=== PATIENT | female | born 1935 | race Caucasian/White ===

== ENCOUNTER 2016-12-30 11:13 | Observation (INO) | payer MEDICARE, BC ==
--- NOTE | ~2016-12-30 | HP ---
History And Physical [place] [address] [facility] [place]. [address] NAME: SHAYNE HIGGINS : 35 STATUS : ADM Francesca PAT#: [id number] AGE: 81 ADM/REG DATE : 12/30/16 MR#: [id number] REPORT SERV DATE: 12/30/16 DICTATED BY: KAUSHIK DE LA ROSA DATE: 12/30/16 REPORT STATUS : Draft TRANSCRIBED BY: BARBIE DATE: 12/30/16 DATE OF ADMISSION: 12/30/2016 CHIEF COMPLAINT: Nausea, vomiting, and chronic diarrhea. HISTORY OF PRESENT ILLNESS: The patient is an 81-year-old female with past medical history of hypothyroidism and hypertension who presents after having sudden onset of nausea, vomiting at approximately 9 to 10 this morning after taking her Synthroid medication. Symptoms were noted as the patient feeling as if she was spinning and the room was spinning, causing shakiness and dizziness. The symptoms have been intermittent, moderate severity, but are pronounced measured, very dizzy when she changes position, and almost falling episodes. She does not report any other neurologic deficits including diplopia or visual changes or loss of vision or change in speech, tip; any numbness, tingling, or motor deficits and these are also not reported by family. Symptoms are strictly occasional nystagmus, beating nystagmus with positional changes. There are no pain radiating symptoms. Does have nausea and vomiting. Has chronic diarrhea that which she follows with Dr. Rees and is on medications for. These symptoms are worsened with positional changes or lately by resting in one single position. Symptoms are still currently present and reproducible. Of note, the patient had similar episode approximately a year ago when she was placed on a different type of ARB. We had changed to Benicar which the patient tolerated well. However, due to insurance reasons, she was changed to irbesartan approximately a month ago and appears to have difficulties tolerating irbesartan again with review of literature approximately 10% cause of dizziness. REVIEW OF SYSTEMS: For additional review of systems, GENERAL: No fever or chills. Positive dizziness. EYES: No eye pain or diplopia. ENT: No ear pain or sore throat. NEURO: No headache, but does have dizziness. SKIN: No rashes but easy bruising. RESPIRATORY: Occasional shortness of breath and dyspnea on exertion over the last few years. No acute changes. CV: No chest pain or palpitations. GI: Nausea, vomiting, and diarrhea. : No dysuria or hematuria. MUSCULOSKELETAL: No myalgias or arthralgias. ENDO: No fatigue or polyuria. HEME: No bleeding. Does have chronic bruising history. IMMUNOLOGIC: No rhinorrhea. PSYCH: No anxiety or confusion. PAST MEDICAL HISTORY: Noted for intermittent diarrhea and constipation, followed by Dr. Rees; hypertension, followed by Dr. Day, her PCP, and Dr. Randall; and macular degeneration. History And Physical [address] [address] NAME: SHAYNE HIGGINS : 35 STATUS : ADM Francesca PAT#: [id number] AGE: 81 ADM/REG DATE : 12/30/16 MR#: [id number] REPORT SERV DATE: 12/30/16 DICTATED BY: KAUSHIK DE LA ROSA DATE: 12/30/16 REPORT STATUS : Draft TRANSCRIBED BY: BARBIE DATE: 12/30/16 SURGERIES: She has had thyroid, vocal cord paralysis, gallbladder, appendectomy, hysterectomy, bilateral cataracts. SOCIAL HISTORY: No smoking, alcohol, or illicits. Accompanied by and daughter. in room. Has a large cigar while he is sitting in the room, but not lit. FAMILY HISTORY: Heart disease, diabetes. EKG: Normal sinus rhythm, rate 69, QTc 477. ALLERGIES: NO KNOWN DRUG ALLERGIES. HOME MEDICATIONS: Chlorthalidone, Prozac, irbesartan, Synthroid, Amitiza, Ocuvite, B12, and hormone implants. PHYSICAL EXAMINATION: VITAL SIGNS: The patient's blood pressure 156/64, temperature 98.7, pulse 56, respirations 19, O2 sats of 100%. GENERAL: No acute distress. Calm, pleasant, well developed, well nourished. EYES: No scleral icterus. Does have right-sided beating nystagmus with Annita maneuvers, reproducible. Hearing grossly intact. ENT: Nares patent. Tongue midline. Moist mucous membranes. RESPIRATORY: Clear to auscultation. No wheezes. No gross bruits on carotids. CV: Regular rate. No rubs or gallops. Mildly hypertensive. Trace bilateral pedal edema. GI: Soft, nontender, and nondistended. Bowel sounds positive. : Deferred. MUSCULOSKELETAL: Moves all extremities x4. SKIN: Warm and dry with occasional bruising on shins. LYMPH: No cervical or supraclavicular lymphadenopathy. HEME: Mild bruising sites on the skin. NEURO: Alert and oriented. [id number] intact. Symmetrical speech tip. Motor functions equal in upper and lower extremities. Sensation is still grossly intact. Reproducible right-sided beating nystagmus on head turn and reproducible dizziness. Ears, hearing acuity grossly intact, although the patient reports decreased hearing acuity at higher tongs. PSYCH: Appropriate mood and affect. LABORATORY DATA: CT, no acute intracranial abnormality and mild atrophy. Urinalysis grossly within normal limits. CMP, within normal limits with a mildly elevated glucose at 130. CBC: WBC count 8.1, H and H 11.9 and 34.8, platelets 358. ASSESSMENT AND PLAN: 1. Dizziness, vertigo. 2. Nausea, vomiting, diarrhea. 3. Hypertension. 4. Hyperglycemia. 5. Hypothyroidism. History And Physical [address] [address] NAME: SHAYNE HIGGINS : 35 STATUS : ADM Francesca PAT#: [id number] AGE: 81 ADM/REG DATE : 12/30/16 MR#: [id number] REPORT SERV DATE: 12/30/16 DICTATED BY: KAUSHIK DE LA ROSA DATE: 12/30/16 REPORT STATUS : Draft TRANSCRIBED BY: BARBIE DATE: 12/30/16 6. Chronic diarrhea and constipation. 7. Occasional shortness of breath. PLAN: For dizziness and vertigo, recent change to irbesartan, which has an approximately 1% to 10% cause of dizziness. Additionally, she has reproducible nystagmus with right side beating nystagmus, possible positional vertigo. We will hold ARB at this time, as the patient had similar episodes approximately a year ago. We will likely need Annita maneuvers and neuro consult for repeat episode. CT head negative. Defer further imaging to Neurology if indicated. 1. Nausea, vomiting, diarrhea. Supportive treatment. Treat underlying dizziness. 2. Hypertension. Continue chlorthalidone, the patient low-dose. Sees Dr. Randall and Dr. Day. Start amlodipine and p.r.n.'s. May need to change back to Benicar. 3. Hyperglycemia. Monitor. No history of diabetes. 4. Hypothyroidism, on replacement. Check TSH. 5. Chronic diarrhea and constipation, on Amitiza. Follows with Dr. Rees. 6. Occasional shortness of breath. Has had outpatient workup with Dr. Day. Consider outpatient PFTs. Bronchodilators. No p.r.n., but no acute respiratory decompensation at this time. DDN/MODL Kaushik De La Rosa MD / [id number] CC: Giles Rossi Jr, MD Luis Sims M.D.
--- NOTE | ~2016-12-30 | CN ---
Consultation Report [facility] [address] [place]. [address] NAME: SHAYNE HIGGINS : 35 STATUS : ADM Francesca PAT#: [id number] AGE: 81 ADM/REG DATE : 12/30/16 MR#: [id number] REPORT SERV DATE: 12/31/16 DICTATED BY: GILMA VILLALPANDO DATE: 12/31/16 REPORT STATUS : Draft TRANSCRIBED BY: BARBIE DATE: 12/31/16 NEUROLOGICAL CONSULTATION-EVALUATION DATE OF CONSULTATION: 12/31/2016 HISTORY OF PRESENT ILLNESS: This is an 81-year-old white female with known history of hypertension and hypothyroidism, who was admitted with complaints of recurrent dizziness and presyncope. The patient stated that she while having her breakfast noticed that she was having difficulty focusing her eyes, became nauseated, and felt as if she was going to "pass out." The patient stood up and was unsteady on her feet. She denied losing consciousness. There is no history of seizures or prior history of CVA. The patient describes having similar episodes last year. As per the patient, her antihypertensive medications were changed approximately a week ago. The patient had been on Benicar and was switched to another medication, which name the patient did not recall. Since that time, the patient has had no recurrent spells, however, has been feeling unsteady every time she sits up from the reclining position. The patient denied having tinnitus, denied recent loss of hearing. Denied weakness or numbness involving her face or extremities. The patient stated that she did feel nauseated with episodes described above. PAST MEDICAL HISTORY: Significant for history for hypertension, hypothyroidism, history of macular degeneration. PAST SURGICAL HISTORY: Status post breast implant in 1977. Cataract surgery several years ago. The patient had history of thyroid surgery, cholecystectomy, appendectomy, and hysterectomy. SOCIAL HISTORY: Denies any history of smoking or alcohol use. The patient is and lives with her . FAMILY HISTORY: Significant for history of heart disease and diabetes. No history of neurological diseases or stroke. ALLERGIES: NO KNOWN ALLERGIES. MEDICATIONS: Prior to admission, amlodipine 5 mg p.o. b.i.d., chlorthalidone 12.5 mg daily, fluoxetine 20 mg, levothyroxine 88 mcg a day, meclizine 25 mg p.o. q.8 hours, multivitamins and vitamin B12 p.o. REVIEW OF SYSTEMS: As per history of present illness, and the rest of 14-point review of systems was positive for recurrent episodes of diarrhea and constipation, and the patient is followed by her primary physician and GI physician. PHYSICAL EXAMINATION: Consultation Report [address] [place]. [address] NAME: SHAYNE HIGGINS : 35 STATUS : ADM Francesca PAT#: [id number] AGE: 81 ADM/REG DATE : 12/30/16 MR#: [id number] REPORT SERV DATE: 12/31/16 DICTATED BY: GILMA VILLALPANDO DATE: 12/31/16 REPORT STATUS : Draft TRANSCRIBED BY: BARBIE DATE: 12/31/16 VITAL SIGNS: Blood pressure 129/61, no orthostatic blood pressures were recorded; pulse was 58 and regular; respirations 20; temperature was 98.5; the patient's weight is approximately 145 pounds; she is 5 feet 5 inches. HEAD AND NECK: Showed her to be normocephalic. There was no evidence of trauma. Auscultation of her head and neck showed no evidence of bruits. No JVD. No thyromegaly. Noted postsurgical scar, well healed at the base of the neck. No lymphadenopathy noted. EYES: Sclerae were not icteric. Conjunctivae were pink. ENT: Tongue was midline. Airway appeared patent, slightly small, Mallampati class III. CHEST: Symmetrical. LUNGS: Clear to auscultation. HEART: Regular S1, S2. I did not appreciate any murmurs or rubs. ABDOMEN: Soft and nontender. No organomegaly. EXTREMITIES: Showed no clubbing or cyanosis. There was no peripheral edema. Peripheral pulses were present. SKIN: Normal. No discoloration, petechia, or ecchymoses noted. NEUROLOGICAL: Mental status exam: The patient was alert and oriented to self, time, and place. Speech was fluent. There was no evidence of aphasia or dysarthria. Thought content and mood were appropriate. No deficits of distant and recent memory were noted on testing. Mood and affect were appropriate. Cranial nerve examination II through XII: Visual vidales on confrontation were intact. Funduscopic exam showed no evidence of papilledema, hemorrhages, or exudates. The rest of cranial nerve examination was normal. Hearing was intact bilaterally. There was no nystagmus on evaluation of extraocular movements. No limitation of upward or downward gaze was noted. There was no dysconjugate gaze. No facial asymmetry was present, and lower cranial nerves were intact. Tongue was midline. No atrophy or fibrillations were noted palate elevated symmetrically. Sternocleidomastoid and trapezius muscles were normal. Visual vidales on confrontation normal, and funduscopic exam showed no evidence of abnormalities. Motor exam: Muscle bulk and tone was normal. Strength was 5/5 throughout. Deep tendon reflexes were 2/2 throughout. Sensory exam showed no evidence of deficit to pinprick, light touch, or vibration. Cerebellar exam: On finger- to-nose and [id number], rapid alternating movements were normal. Romberg test was negative, and the patient's gait was unremarkable. LABORATORY STUDIES: Sodium 138, potassium 4.1, chloride 103, BUN 17, creatinine 1.03, glucose 99, calcium 8.1. WBC count 8.7, hemoglobin 10.6, hematocrit 31.2, platelet count 332,000. Troponin less than 0.02. TSH not tested. BNP 139.8. CT scan of the head showed no evidence of acute changes, mild atrophy was noted. IMPRESSION: Recurrent episodes of vertigo and presyncope, and the description may suggest presence of an additional component of possible orthostatic hypotension. At present, the patient's neurological exam is normal. It is quite possible we are dealing with peripheral vestibular dysfunction. However, in view of the patient's age and underlying history of hypertension, would recommend to test for possible posterior circulation TIA. Recommend to obtain MRI and MRA or CTA of posterior circulation, sedimentation rate, TSH, free T4, and free T3. The patient does have signs of anemia, which may contribute to the patient's symptoms. Would recommend an outpatient workup as per primary physician to determine the Consultation Report [address] [place]. [address] NAME: SHAYNE HIGGINS : 35 STATUS : ADM Francesca PAT#: [id number] AGE: 81 ADM/REG DATE : 12/30/16 MR#: [id number] REPORT SERV DATE: 12/31/16 DICTATED BY: GILMA VILLALPANDO DATE: 12/31/16 REPORT STATUS : Draft TRANSCRIBED BY: BARBIE DATE: 12/31/16 source of chronic anemia. Additional laboratory studies should include serum lipid profile, vitamin D level, vitamin B12, and folate level. Obtain orthostatic blood pressure and pulse changes. If the patient's symptoms persist, start meclizine 25 mg p.o. b.i.d. or t.i.d. p.r.n. or outpatient ENT evaluation to monitor possible peripheral vestibular dysfunction. If the patient's imaging studies are normal, the patient may be followed on outpatient basis. Recommend Neurology outpatient followup. Thank you for allowing me to participate in this patient's care. TABITHA/BARBIE Gilma Villalpando MD / [id number] CC: Giles Rossi Jr, MD Richard Moore, M.D.
--- NOTE | ~2016-12-30 | DS ---
Discharge Summary [facility] [address] [place] [place]. [address] NAME: SHAYNE HIGGINS : 35 STATUS : ADM Francesca PAT#: [id number] AGE: 81 ADM/REG DATE : 12/30/16 MR#: [id number] REPORT SERV DATE: 01/01/17 DICTATED BY: MILANA PELLETIER DATE: 12/31/16 REPORT STATUS : Draft TRANSCRIBED BY: MODL DATE: 12/31/16 ADMISSION DATE: 12/30/2016 DISCHARGE DATE: 12/31/2016 DISCHARGE DIAGNOSES: 1. Dizziness/vertigo. 2. Nausea, vomiting, diarrhea, resolved. 3. Hypertension, stable. 4. Hyperglycemia, resolved. 5. Hypothyroidism, stable. IMAGIN. CT brain, 12/30/2016. Impression: No acute intracranial abnormality. 2. MRA head, 12/31/2016. Impression: Unremarkable intracranial MRA. 3. MRA of neck, 12/31/2016. Impression: Motion abbreviated exam. Otherwise, unremarkable MRA of the carotid arteries, no significant atherosclerotic plaques or stenosis. Normal caliber antegrade flow bilateral vertebral arteries. 4. MRI of brain, 12/31/2016. Impression: No acute CVA or acute intracranial pathology. Mild diffuse cerebral involutional changes and very minor deep white matter chronic microvascular ischemic changes. LABORATORY DATA: WBC is 8.7, hemoglobin 10.6, hematocrit 31.2, platelet count is 332. Sodium is 138, potassium is 4.1, chloride is 103, CO2 is 28, BUN is 17, creatinine is 1.04, glucose is 99, calcium is 8.1, magnesium is 1.8, phosphorus is 2.4, cholesterol is 219, HDL is 68, LDL is 118, non-HDL cholesterol is 151, triglycerides is 165. COURSE OF HOSPITAL STAY: Please refer to history and physical dictated by Dr. Julio Cesar Ahmadi on 12/30/2016, for complete admission details as well as consultation note by neurologist, Dr. Gilma Villalpando on 12/31/2016. This patient is an 81-year-old female, who presented to [facility] Emergency Room for evaluation of dizziness and vertigo. The patient stated that she previously had an episode approximately 1 year ago. The patient states this episode began as she stood up at home, became unsteady on her feet, denied losing consciousness at that time, was brought in for evaluation. She does present with a history of hypertension and hypothyroidism. She does state that she had recently been on Benicar and then switched to Avapro. The patient was admitted overnight for observation and further testing. As noted above, the patient underwent MRI as well as a Neurology consult. Findings were negative. At this time, blood pressures have remained stable. The patient's Avapro was held upon admission. Norvasc 5 mg b.i.d. was initiated. The patient has tolerated well. Blood pressures have been monitored. Orthostatics have been stable. The patient will follow up with her primary care within 2 to 3 days for further evaluation. She has been advised to keep blood pressure readings at home. The patient did state understanding. The patient denies nausea, vomiting, diarrhea. Hyperglycemia has resolved. The patient will continue her Synthroid as prescribed. The patient did agree with the treatment plan. Discharge Summary [address] [address] NAME: SHAYNE HIGGINS : 35 STATUS : ADM Francesca PAT#: [id number] AGE: 81 ADM/REG DATE : 12/30/16 MR#: [id number] REPORT SERV DATE: 01/01/17 DICTATED BY: MILANA PELLETIER DATE: 12/31/16 REPORT STATUS : Draft TRANSCRIBED BY: BARBIE DATE: 12/31/16 DISCHARGE MEDICATIONS: 1. Norvasc 5 mg one p.o. twice daily. 2. [place] 25 mg, 12.5 daily. 3. Prozac 20 mg one p.o. daily. 4. Synthroid 88 mcg p.o. daily. 5. Amitiza 8 mcg p.o. twice daily. 6. Antivert 25 mg one p.o. every eight hours p.r.n. for dizziness. 7. Ocuvite tab one daily. 8. Vitamin B12 [id number] one daily. 9. Hormone implant 1 dose subcu every 90 days. This discharge took greater than 30 minutes in corroboration with neurologist, the patient, and reviewing test results. MANGO/BARBIE Milana Pelletier NP / [id number] CC: MD Luis Olivia M.D.
[2016-12-30 12:02] LABS: BASOPHILS 0.5 %; BASOPHILS ABSOLUTE 0.04 10/3/uL (0.0-0.16); EOSINOPHILS 1.2 %; HEMATOCRIT 34.8 % (36.0-48.0); HEMOGLOBIN 11.9 g/dL (12.0-16.0); IMMATURE GRANULOCYTES 0.1 %; IMMATURE GRANULOCYTES ABSOLUTE 0.01 10/3/uL (0.0-0.11); LYMPHOCYTES 19.1 %; LYMPHOCYTES ABSOLUTE 1.54 10/3/uL (0.67-4.30); MEAN CORPUSCULAR HEMOGLOB 31.2 pg (26.0-34.0); MEAN CORPUSCULAR VOLUME 91.1 fL (80-100); MONOCYTES 9.2 %; MONOCYTES ABSOLUTE 0.74 10/3/uL (0.21-1.20); NEUTROPHILS 69.9 %; NEUTROPHILS ABSOLUTE 5.64 10/3/uL (2.02-8.40); PLATELET COUNT 358 10/3/uL (150-400); RBC DISTRIBUTION WIDTH 12.9 % (12.0-16.0); RED CELL COUNT 3.82 10/6/uL (4.0-5.6); WHITE BLOOD CELLS 8.1 10/3/uL (4.5-10.5)
[2016-12-30 12:03] LABS: ER CBC TAT 0 Hrs 07 MinsNP; MANUAL DIFF NO %; MEAN CORPUS HGB CONC 34.2 g/dL (32.0-36.0)
[2016-12-30 12:22] LABS: A/G RATIO 1.1 (0.7-1.9); ALBUMIN 3.6 G/DL (3.5-5.0); ALKALINE PHOSPHATASE 59 U/L (45-117); BUN (BLOOD UREA NITROGEN) 15 MG/DL (6-23); CALCIUM, SERUM 8.8 MG/DL (8.5-10.4); CHLORIDE, SERUM 102 MMOL/L (96-112); CREATININE 0.94 MG/DL (0.55-1.02); GFR AFRICAN AMERICAN 66 ML/MIN (>=60); GFR NON AFRICAN AMERICAN 57 ML/MIN (>=60); GLOBULIN 3.4 G/DL (2.5-4.1); POTASSIUM, SERUM 3.8 MMOL/L (3.5-5.3); SGOT(AST) 11 U/L (5-40); SGPT(ALT) 13 U/L (5-65); SODIUM, SERUM 138 MMOL/L (135-148)
[2016-12-30 12:25] LABS: CO2 (CARBON DIOXIDE) 25 MMOL/L (24-34); GLUCOSE, SERUM 130 MG/DL (60-99); TOTAL BILIRUBIN 0.5 MG/DL (0-1.2)
[2016-12-30 13:00] LABS: ASCORBIC ACID (UR NOT ORDER) NEG (NEG); BILIRUBIN, URINE NEGATIVE (NEG); ER URINALYSIS TAT 0 Hrs 15 Mins; KETONE, URINE NEGATIVE (NEG); LEUKOCYTE ESTERASE(NOT OR NEG (NEG); NITRITE (URINE) NEG (NEG); WBC (NOT ORDERED) (RFLEX) 1 (0-5)
[2016-12-30] MEDS ORDERED: PROZAC PO (14:20)
[2016-12-30] MEDS ORDERED: SYN88 PO (14:21)
[2016-12-30] MEDS ORDERED: HYGROTON 25 MG25 MG PO (14:21)
[2016-12-30] MEDS ORDERED: AVAP150 PO (14:21)
[2016-12-30] MEDS ORDERED: CYANOCOBALAMIN PO (14:22)
[2016-12-30] MEDS ORDERED: AMITIZA8 MCG PO (14:22)
[2016-12-30] MEDS ORDERED: OCUVITE PO (14:22)
[2016-12-30] MEDS ORDERED: HORMONE IMPLANT SC (14:28)
[2016-12-31 05:03] LABS: BASOPHILS 0.5 %; BASOPHILS ABSOLUTE 0.04 10/3/uL (0.0-0.16); EOSINOPHILS ABSOLUTE 0.09 10/3/uL (0.0-0.53); HEMATOCRIT 31.2 % (36.0-48.0); HEMOGLOBIN 10.6 g/dL (12.0-16.0); IMMATURE GRANULOCYTES 0.5 %; IMMATURE GRANULOCYTES ABSOLUTE 0.04 10/3/uL (0.0-0.11); LYMPHOCYTES 25.8 %; LYMPHOCYTES ABSOLUTE 2.25 10/3/uL (0.67-4.30); MANUAL DIFF NO %; MEAN CORPUSCULAR HEMOGLOB 31.1 pg (26.0-34.0); MEAN CORPUSCULAR VOLUME 91.5 fL (80-100); MEAN PLATELET VOLUME 10.2 fL (9.2-13.0); MONOCYTES 10.5 %; MONOCYTES ABSOLUTE 0.92 10/3/uL (0.21-1.20); NEUTROPHILS 61.7 %; NEUTROPHILS ABSOLUTE 5.39 10/3/uL (2.02-8.40); PLATELET COUNT 332 10/3/uL (150-400); RBC DISTRIBUTION WIDTH 13.3 % (12.0-16.0); RED CELL COUNT 3.41 10/6/uL (4.0-5.6); WHITE BLOOD CELLS 8.7 10/3/uL (4.5-10.5)
[2016-12-31 05:37] LABS: BUN (BLOOD UREA NITROGEN) 17 MG/DL (6-23); CALCIUM, SERUM 8.1 MG/DL (8.5-10.4); CHLORIDE, SERUM 103 MMOL/L (96-112); CO2 (CARBON DIOXIDE) 28 MMOL/L (24-34); CREATININE 1.04 MG/DL (0.55-1.02); GFR AFRICAN AMERICAN 58 ML/MIN (>=60); GFR NON AFRICAN AMERICAN 50 ML/MIN (>=60); PHOSPHORUS, SERUM 2.4 MG/DL (2.5-4.5); POTASSIUM, SERUM 4.1 MMOL/L (3.5-5.3); SODIUM, SERUM 138 MMOL/L (135-148); TROPONIN I <0.02 NG/ML (<0.05)
[2016-12-31 05:40] LABS: GLUCOSE, SERUM 99 MG/DL (60-99)
[2016-12-31 12:47] LABS: CHOL/HDL RATIO(NOT ORDER) 3.2 (0-5); CHOLESTEROL 219 MG/DL (< 200); HDL CHOLESTEROL 68 MG/DL (> 49); LDL CHOLESTEROL 118 MG/DL (< 130); NON-HDL CHOLESTEROL 151 MG/DL (< 160); TRIGLYCERIDE 165 MG/DL (< 150)
[2016-12-31 12:48] LABS: FOLATE 10.4 NG/ML (>5.2)
[2016-12-31] MEDS ORDERED: MCZ25 PO (18:33)
[2016-12-31] MEDS ORDERED: NORV5 PO (18:34)
== END 2016-12-31 19:30 | disposition home or self-care (01) ==
LOC: ER 11:13 → CDU1 14:39
PROVIDERS: Nurse Practitioner Family; Student in an Organized Health Care Education/Training Program
DX: R42 Dizziness and giddiness (principal); R11.2 Nausea with vomiting, unspecified; R19.7 Diarrhea, unspecified; I10 Essential (primary) hypertension; E03.9 Hypothyroidism, unspecified; R73.9 Hyperglycemia, unspecified; Z90.710 Acquired absence of both cervix and uterus; Z90.49 Acquired absence of other specified parts of digestive tract; Z98.41 Cataract extraction status, right eye; Z98.42 Cataract extraction status, left eye; Z79.899 Other long term (current) drug therapy
CPT/HCPCS: 70450; 70544; 70548; 70551; 80048; 80053; 80061; 81001; 82306; 82607; 82746; 83690; 83735; 83880; 84100; 84484; 85025; 93005; 96372; 96374; 99285; A9270-GY; A9577; G0378; J2405